=== PATIENT | female | born 1955 | race Caucasian/White ===

== ENCOUNTER 2017-01-13 18:50 | Emergency (ER) | payer OTHER ==
[2017-01-13 19:08] VITALS: BP 150/81
[2017-01-13] MEDS ORDERED: Levalbuterol 0.63MG/3ML NEB INH ONE (19:18)
--- NOTE | 2017-01-13 19:18 | UC ---
Respiratory Complaint HPI - HPI Summary HPI Summary: cough chest burning and tightness with cough otherwise feels well - History of Current Complaint Chief Complaint: UCRespiratory Stated Complaint: CHEST CONGESTION,COUGH Time Seen by Provider: 01/13/17 19:00 Hx Obtained From: Patient ?: No Onset/Duration: Gradual Onset, Lasting Days, Still Present Timing: Constant Severity Initially: Moderate Severity Currently: Moderate Character: Cough: Nonproductive Aggravating Factors: Nothing Alleviating Factors: Nothing Associated Signs And Symptoms: Positive: Pleuritic Chest Pain, URI - Allergies/Home Medications Allergies/Adverse Reactions: Allergies Allergy/AdvReac Type Severity Reaction Status Date / Time Ciprofloxacin AdvReac Intermediate Leg Cramps Verified 01/13/17 19:09 ct dye Allergy Intermediate Tachycardia Uncoded 01/13/17 19:09 PMH/Surg Hx/FS Hx/Imm Hx Previously Healthy: No Endocrine History Of: Denies: Diabetes Cardiovascular History Of: Reports: Cardiac Disorders, Hypertension Denies: Myocardial Infarction Respiratory History Of: Denies: COPD, Asthma GI/ History Of: Denies: Renal Disease Cancer History Of: Denies: Breast Cancer - Surgical History Surgical History: Yes Surgery Procedure, Year, and Place: Hysterectomy 1999; tonsillectomy CATERACT SURGURY=01/20/16 - Family History Known Family History: Positive: None Family History: denies cardiovascular issues in family lineage - Social History Occupation: Employed Full-time Lives: With Family Alcohol Use: Occasionally Substance Use Type: None Smoking Status (MU): Never Smoked Tobacco - Immunization History Most Recent Influenza Vaccination: none Most Recent Tetanus Shot: 2011 Most Recent Pneumonia Vaccination: none Review of Systems Constitutional: Negative Skin: Negative Eyes: Negative ENT: Negative Respiratory: Cough Cardiovascular: Chest Pain - pleurtic/bronchial Gastrointestinal: Negative Genitourinary: Negative Motor: Negative Neurovascular: Negative Musculoskeletal: Negative Neurological: Negative Psychological: Negative All Other Systems Reviewed And Are Negative: Yes Physical Exam Triage Information Reviewed: Yes Appearance: Well-Appearing, No Pain Distress, Well-Nourished Vital Signs: Initial Vital Signs Temp 98.7 F 01/13/17 19:05 Pulse 67 01/13/17 19:05 Resp 18 01/13/17 19:05 BP 150/81 01/13/17 19:05 Pulse Ox 98 01/13/17 19:05 Vital Signs Reviewed: Yes Eye Exam: Normal Eyes: Positive: Conjunctiva Clear ENT Exam: Normal ENT: Positive: Normal ENT inspection, Hearing grossly normal, Pharynx normal, TMs normal. Negative: Nasal congestion, Nasal drainage, Tonsillar swelling, Tonsillar exudate, Trismus, Muffled/hoarse voice Dental Exam: Normal Neck exam: Normal Neck: Positive: Supple, Nontender, No Lymphadenopathy Respiratory Exam: Normal Respiratory: Positive: Chest non-tender, Lungs clear, Normal breath sounds, No respiratory distress, No accessory muscle use Cardiovascular Exam: Normal Cardiovascular: Positive: RRR, No Murmur, Pulses Normal, Brisk Capillary Refill Musculoskeletal Exam: Normal Musculoskeletal: Positive: Strength Intact, ROM Intact, No Edema Neurological Exam: Normal Neurological: Positive: Alert, Muscle Tone Normal Psychological Exam: Normal Skin Exam: Normal UC Diagnostic Evaluation - Laboratory O2 Sat by Pulse Oximetry: 98 Re-Evaluation - Re-Evaluation First Eval Change: Improved - after neb treatment increase aeration and discomfort resolved Respiratory Course/Dx - Course Course Of Treatment: xoeponex MDI, Prednisone, Zithromax if fails to improve increase fluids follow with pcp - Differential Dx/Diagnosis Differential Diagnosis/HQI/PQRI: Asthma, Bronchitis, Lower Resp Infection, Sinusitis Provider Diagnoses: Bronchitis with bronchospasm, Hypertension with a dx and being treated by pcp Discharge - Discharge Plan Condition: Stable Disposition: HOME Prescriptions: Azithromycin TAB* [Zithromax TAB (Z-JAYDE) 250 mg #6 tabs] 2 tab PO .TODAY, THEN 1 DAILY #1 jayde Levalbuterol HFA INHALER* [Xopenex Hfa Inhaler*] 2 puff INH QID PRN #1 mdi PRN Reason: Shortness Of Breath predniSONE TAB* [Deltasone TAB*] 40 mg PO DAILY #6 tab Patient Education Materials: How to Use a Metered-Dose Inhaler (ED), Acute Bronchitis (ED), Bronchospasm (ED) Referrals: Elva Yang MD [Primary Care Provider] - 1 Week
[2017-01-13] MEDS ORDERED: predniSONE TAB* 20 MG PO ONE (19:19)
== END 2017-01-13 20:15 | disposition home or self-care (01) ==
LOC: UCEAST 18:50
DX: J20.9 Acute bronchitis, unspecified (principal); I10 Essential (primary) hypertension; Z88.1 Allergy status to other antibiotic agents; Z91.041 Radiographic dye allergy status
CPT/HCPCS: 99212; A9270-GY; G0463; J7512

== ENCOUNTER 2018-03-14 20:43 | Emergency (ER) | payer BC ==
[2018-03-14 20:54] VITALS: BP 160/66
--- NOTE | 2018-03-14 21:03 | UC ---
Head Injury HPI - HPI Summary HPI Summary: Pt presents with . Pt was working in garden and stepped into a wooden cross beam which slide down head and back knocking patient to ground. No LOC No blood HEENT. No neck or back pain Pt with COLLIER occipital area. States feels dazed. no paresthesia, weakness. no bleeding no other injuries no anticoagulants ice applied no analgesia pt's medications reviewed this visit - History Of Current Complaint Chief Complaint: UCHeadInjury Stated Complaint: HEAD INJURY Time Seen by Provider: 03/14/18 21:02 Hx Obtained From: Patient ?: No Onset/Duration: Sudden Onset Severity Currently: None Severity Initially: Moderate Pain Intensity: 4 Pain Scale Used: 0-10 Numeric Character: Sharp Aggravating Factor(s): Nothing Alleviating Factor(s): Nothing Associated Signs And Symptoms: Positive: Negative, LOC (Time In Secs./Mins/Hrs) - Allergies/Home Medications Allergies/Adverse Reactions: Allergies Allergy/AdvReac Type Severity Reaction Status Date / Time ciprofloxacin [From Cipro] Allergy Leg Cramps Verified 03/14/18 20:54 ct dye Allergy Intermediate Tachycardia Uncoded 03/14/18 20:54 Home Medications: Home Medications Magnesium 03/14/18 [History] Naproxen [Naproxen 500 mg tab] 500 mg PO PRN 03/14/18 [History] PMH/Surg Hx/FS Hx/Imm Hx Previously Healthy: Yes - Surgical History Surgical History: Yes Surgery Procedure, Year, and Place: Hysterectomy 1999; tonsillectomy CATERACT SURGERY=01/20/16 - Family History Known Family History: Positive: None Family History: denies cardiovascular issues in family lineage - Social History Occupation: Employed Full-time - teacher Lives: With Family Alcohol Use: Daily Alcohol Amount: 2 GLASSES WINE Substance Use Type: None Smoking Status (MU): Never Smoked Tobacco - Immunization History Most Recent Influenza Vaccination: none Most Recent Tetanus Shot: 2011 Most Recent Pneumonia Vaccination: none Review of Systems Constitutional: Negative Skin: Other All Other Systems Reviewed And Are Negative: Yes Physical Exam - Summary Physical Exam Summary: Vital Signs Reviewed: Yes A+Ox3, no distress Eyes: Conjunctiva Clear, FANG. EOM intact and full ENT: Hearing grossly normal TM x 2 clear, no hemotymp, no septal hematoma mmoist, uvula midline, no exudate, no erythema Neck: Positive: Supple no spinous process pain c/t/l/s Respiratory: Positive: No respiratory distress, No accessory muscle use + CTA throughout no w/r Cardiovascular: RRR nl s1, s2 no m/r CBT <2 sec abd soft + BS nt/nd no guarding, no distension Musculoskeletal Exam: LE x 4 without difficulty Strength Intact, ROM Intact Neurological: Positive: Alert, appropriate, no difficulty with word or speech, ambulatory without difficulty, cn 2-12 intact, + sensation throughout Psychological: Positive: Normal Response To Family Skin: Positive: no rash, no ecchymosis small contusion prox aspect of occiput. No abraison, laceration Triage Information Reviewed: Yes Vital Signs: Initial Vital Signs Temp 96.9 F 03/14/18 20:50 Pulse 63 03/14/18 20:50 Resp 18 03/14/18 20:50 BP 160/66 03/14/18 20:50 Pulse Ox 100 03/14/18 20:50 Diagnostics - Radiology No standard instances Radiology Interpretation Completed By: Radiologist - Patient Name: CLINT MOSHER Medical Record#: [id number] Ordering Physician: Fernanda Whitfield MD Acct.#: [id number] : 1955 Age: 62 Sex: F Location: [facility] Exam Date: 03/14/182111 ADM Status: [facility] ER Order Information: CT BRAIN WO Accession Number: [id number] CPT: 50915 HISTORY: Trauma COMPARISONS: April 21, 2016 TECHNIQUE : Multiple contiguous axial CT scans were obtained of the head without intravenous contrast. FINDINGS: HEMORRHAGE/INFARCT: There is no hemorrhage or acute infarct. MASSES/SHIFT: There is no mass or shift. EXTRA-AXIAL SPACES: There are no extra-axial fluid collections. SULCI AND VENTRICLES: The sulci and ventricles are normal in size and position for the patient's stated age. CEREBRUM: There are no focal parenchymal abnormalities. BRAINSTEM: There are no focal parenchymal abnormalities. CEREBELLUM: There are no focal parenchymal abnormalities. VESSELS: The vessels are grossly normal. PARANASAL SINUSES: The paranasal sinuses are clear. ORBITS: The orbits are unremarkable. BONES AND SOFT TISSUE: No bone or soft tissue abnormalities are noted. OTHER: None IMPRESSION: NO ACUTE INTRACRANIAL PATHOLOGY. <Electronically signed by Octaviano Davis MD in [place]> 03/14/182130 Dictated By: Octaviano Davis MD Dictated Date/Time: 03/14 Transcribed Date/Time: 03/14/182129 Copy to: CC:Fernanda Whitfield MD; Elva Yang MD Imaging - [facility] Imaging - [facility] Imaging - [facility] [address] [address] ph ([phone]) ph ([phone]) ph ([phone]) 1 of 2 Re-Evaluation - Re-Evaluation First Eval Change: Improved - Pt reports COLLIER improving and feeling "more clear" reviewed CT again reviewed [facility] motrin/apap f/u with pcp - CHI and BP Head Injury Course/Dx - Course Course Of Treatment: Pt with injury to posterior scalp. No LOC no blood HEENT. normal neuro exam. will check CT head. ice. analgesia. I had a long conversation with pt and regarding concussion, CHI - Differential Dx/Diagnosis Provider Diagnoses: CHI. scalp contusion Discharge - Sign-Out/Discharge Documenting (check all that apply): Discharge/Admit/Transfer - Discharge Plan Condition: Stable Disposition: HOME Patient Education Materials: Concussion (ED), Head Injury (ED), Scalp Contusion in Adults (ED) Forms: *Gen. Provider Communication Referrals: Elva Yang MD [Primary Care Provider] - Additional Instructions: - apply ice (wrapped in a towel) 20 minutes at a time, 2-3 times a day - Okay to alternate ibuprofen (Advil, Motrin) 600mg and tylenol every 3 hours for pain. Take with food. Do NOT take for more than 4-5 days - stay well hydrated - drink plenty of non-alcoholic, non-caffinated beverages - get plenty of restful sleep - discomfort increases for the first 1-2 days. If you develop uncontrolled pain , headache, vision changes, vomiting, arm or leg weakness or any other concerns - go to the emergency department for further evaluation and treatment - Billing Disposition and Condition Condition: STABLE Disposition: HOME
[2018-03-14] MEDS ORDERED: Acetaminophen TAB* 325 MG PO ONE (21:12)
--- NOTE | 2018-03-14 21:34 | RAD ---
HISTORY: Trauma COMPARISONS: April 21, 2016 TECHNIQUE: Multiple contiguous axial CT scans were obtained of the head without intravenous contrast. FINDINGS: HEMORRHAGE/INFARCT: There is no hemorrhage or acute infarct. MASSES/SHIFT: There is no mass or shift. EXTRA-AXIAL SPACES: There are no extra-axial fluid collections. SULCI AND VENTRICLES: The sulci and ventricles are normal in size and position for the patient's stated age. CEREBRUM: There are no focal parenchymal abnormalities. BRAINSTEM: There are no focal parenchymal abnormalities. CEREBELLUM: There are no focal parenchymal abnormalities. VESSELS: The vessels are grossly normal. PARANASAL SINUSES: The paranasal sinuses are clear. ORBITS: The orbits are unremarkable. BONES AND SOFT TISSUE: No bone or soft tissue abnormalities are noted. OTHER: None IMPRESSION: NO ACUTE INTRACRANIAL PATHOLOGY.
== END 2018-03-14 22:00 | disposition home or self-care (01) ==
LOC: UCEAST 20:43
DX: S00.03XA Contusion of scalp, initial encounter (principal); W22.8XXA Striking against or struck by other objects, initial encounter; Y93.H2 Activity, gardening and landscaping; Y92.096 Garden or yard of other non-institutional residence as the place of occurrence of the external cause; Z88.1 Allergy status to other antibiotic agents; Z91.041 Radiographic dye allergy status
CPT/HCPCS: 70450; 99212; A9270-GY; G0463